=== PATIENT | male | born 1965 | race African-American/Black ===

== ENCOUNTER 2017-04-20 07:45 | Day surgery (SDC) | payer OTHER ==
[2017-04-20] MEDS ORDERED: TETRACAINE 0.5% OPHTH 1 DOSE AFFEYE ONE ×2 (08:20→08:55)
[2017-04-20] MEDS ORDERED: MYDRIACIL OPHTH 1 DOSE AFFEYE ONE ×3 (08:21→08:25)
[2017-04-20] MEDS ORDERED: AK-DILATE 10% OPHTH 1 DOSE AFFEYE ONE ×3 (08:22→08:26)
[2017-04-20 11:04] VITALS: BP 180/90
== END 2017-04-20 09:05 | disposition home or self-care (01) ==
LOC: SURG1 07:45
PROVIDERS: ATTEND Ophthalmology
PROC: 085F3ZZ Destruction of Left Retina, Percutaneous Approach (ICD-10-PCS; principal; 2017-04-20 06:45)
DX: E11.3312 Type 2 diabetes mellitus with moderate nonproliferative diabetic retinopathy with macular edema, left eye (principal)

== ENCOUNTER 2017-05-25 07:37 | Day surgery (SDC) | payer OTHER ==
[2017-05-25] MEDS ORDERED: TETRACAINE 0.5% OPHTH 1 DOSE AFFEYE ONE ×2 (07:45→08:22)
[2017-05-25] MEDS ORDERED: MYDRIACIL OPHTH 1 DOSE AFFEYE ONE ×3 (07:47→07:51)
[2017-05-25] MEDS ORDERED: AK-DILATE 2.5% OPHTH 1 DOSE OP ONE ×3 (07:48→07:52)
[2017-05-25 11:16] VITALS: BP 175/95
== END 2017-05-25 08:33 | disposition home or self-care (01) ==
LOC: SURG1 07:37
PROVIDERS: ATTEND Ophthalmology
PROC: 085E3ZZ Destruction of Right Retina, Percutaneous Approach (ICD-10-PCS; principal; 2017-05-25 07:30)
DX: E11.3311 Type 2 diabetes mellitus with moderate nonproliferative diabetic retinopathy with macular edema, right eye (principal)